=== PATIENT | male | born 1965 | race Caucasian/White ===

== ENCOUNTER → 2022-05-05 09:49 | Outpatient (BNVA) | payer OTHER, SELFPAY | PROVIDERS: Visit Provider Podiatrist Foot & Ankle Surgery | DX: M79.89 Other specified soft tissue disorders (principal); M71.9 Bursopathy, unspecified; M21.6X1 Other acquired deformities of right foot; M21.6X2 Other acquired deformities of left foot; L90.9 Atrophic disorder of skin, unspecified | CPT/HCPCS: 73630 ==

== ENCOUNTER → 2022-09-22 10:30 | Outpatient (BNVA) | payer OTHER, SELFPAY | PROVIDERS: Visit Provider Podiatrist Foot & Ankle Surgery | DX: M79.89 Other specified soft tissue disorders (principal); M21.6X1 Other acquired deformities of right foot; M21.6X2 Other acquired deformities of left foot; L90.9 Atrophic disorder of skin, unspecified | CPT/HCPCS: 73630; 99213 ==

== ENCOUNTER → 2022-12-22 09:23 | Outpatient (BNVA) | payer OTHER, SELFPAY | PROVIDERS: Visit Provider Podiatrist Foot & Ankle Surgery | DX: M79.89 Other specified soft tissue disorders; M21.6X1 Other acquired deformities of right foot; M21.6X2 Other acquired deformities of left foot; L90.9 Atrophic disorder of skin, unspecified | CPT/HCPCS: 99213 ==

== ENCOUNTER → 2024-04-24 14:58 | Outpatient (BNVA) | payer OTHER, SELFPAY | PROVIDERS: Visit Provider Podiatrist Foot & Ankle Surgery | DX: M79.89 Other specified soft tissue disorders (principal); M21.6X1 Other acquired deformities of right foot; M21.6X2 Other acquired deformities of left foot; L90.9 Atrophic disorder of skin, unspecified; M79.671 Pain in right foot; M79.672 Pain in left foot; G89.29 Other chronic pain; Q82.8 Other specified congenital malformations of skin; M77.41 Metatarsalgia, right foot | CPT/HCPCS: 99213 ==

== ENCOUNTER → 2024-06-05 14:24 | Outpatient (BNVA) | payer OTHER, SELFPAY | PROVIDERS: Visit Provider Podiatrist Foot & Ankle Surgery | DX: M79.89 Other specified soft tissue disorders (principal); M21.6X1 Other acquired deformities of right foot; M21.6X2 Other acquired deformities of left foot; L90.9 Atrophic disorder of skin, unspecified; Q82.8 Other specified congenital malformations of skin; M20.42 Other hammer toe(s) (acquired), left foot | CPT/HCPCS: 99213 ==

== ENCOUNTER → 2024-06-19 09:43 | Outpatient (BNVA) | payer OTHER, SELFPAY | PROVIDERS: Visit Provider Podiatrist Foot & Ankle Surgery | DX: M20.42 Other hammer toe(s) (acquired), left foot (principal); M79.89 Other specified soft tissue disorders; M21.6X1 Other acquired deformities of right foot; M21.6X2 Other acquired deformities of left foot; L90.9 Atrophic disorder of skin, unspecified; M79.671 Pain in right foot; M79.672 Pain in left foot; G89.29 Other chronic pain; Q82.8 Other specified congenital malformations of skin; M77.40 Metatarsalgia, unspecified foot | CPT/HCPCS: 28011; 99213; J9999 ==

== ENCOUNTER → 2024-06-26 14:26 | Outpatient (BNVA) | payer OTHER, SELFPAY | PROVIDERS: Visit Provider Podiatrist Foot & Ankle Surgery | DX: M79.89 Other specified soft tissue disorders (principal); M21.6X1 Other acquired deformities of right foot; M21.6X2 Other acquired deformities of left foot; L90.9 Atrophic disorder of skin, unspecified; M79.671 Pain in right foot; M79.672 Pain in left foot; G89.29 Other chronic pain; Q82.8 Other specified congenital malformations of skin; M77.40 Metatarsalgia, unspecified foot | CPT/HCPCS: 99024 ==